=== PATIENT | male | born 1950 | race Caucasian/White ===

== ENCOUNTER 2016-09-24 15:04 | Emergency (ER) | payer OTHER ==
[~2016-09-24] VITALS: Ht 167.6 cm; Wt 92.5 kg
[~2016-09-24 15:04] MED LIST: ACETAMINOPHEN325 M1 PO; ALEVE220 M2 PO; ASA FREE ANALG1 EACH PO; ASCORBIC ACID500 M3 PO; ASPIR 8181 M1 PO; ASPIRIN81 M1 PO; ATIVAN0.5 MG PO; ATIVAN1 M1 PO; ATIVAN1 MG PO; Aspirin E.C. PO; BACTRIM,SEPT1 TABLET PO; BISACODYL SUPP10 MG PR; BUPROBAN150 MG PO; CALCIUM CITRAT1 EAC1 PO; CARISOPRODOL350 MG PO; CARVEDILOL6.25 MG PO; CELEBREX200 MG PO; CELECOXIB200 MG PO; CENTURY SENIOR1 EAC2 PO; CHANTIX1 MG PO; CLOPIDOGREL75 MG PO; COMBIVENT INH14.7 GM IH; COMBIVENT RESPIM4 GM IH; COMBIVENT200 INHALA IH; CRESTOR40 MG PO; CYMBALTA20 MG PO; CYMBALTA30 MG PO; CYMBALTA60 MG PO; DECADRON1 MG PO; DECADRON2 MG PO; DECADRON4 MG PO; DIAZEPAM5 MG PO; DILAUDID2 MG PO; DOCUSATE SODIU1 EACH PO; DURAGESIC25 MCG TD; ENDOCET 5-3251 EACH PO; FAMOTIDINE20 MG PO; FLEXERIL10 MG PO; FLOMAX0.4 MG PO; FOLIC ACID1 MG PO; HYDROCET 5-5001 EACH PO; LIPITOR40 MG PO; LIPITOR80 MG PO; LISINOPRIL10 MG PO; LISINOPRIL20 MG PO; LISINOPRIL5 MG PO; LORAZEPAM1 MG; LORAZEPAM1 MG PO; LOVAZA1 GM PO; MILK OF MAGNESI10 ML PO; MULTI DELYN PO; MULTI-VITAMIN1 EAC4 PO; MULTIVITAMIN1 EAC2 PO; MYSOLINE50 MG PO; NAPROSYN500 MG PO; NEXIUM40 MG PO; OXYCODONE-ACET1 EACH PO; OXYCODONE-APAP1 EACH PO; PERCOCET 5-3251 EACH PO; PERCOCET 5/31 TABLET PO; PLAVIX75 MG PO; PRIMIDONE50 MG PO; PRINIVIL20 MG PO; Percocet 5/325,Endoc PO; RANITIDINE HCL150 MG PO; ROXICET 5-3251 EACH PO; SOMA350 MG PO; SULFAMETHOXAZO1 EAC4 PO; TIZANIDINE HCL4 M1 PO; TRAMADOL HCL50 MG PO; ULTRAM50 MG PO; VALIUM5 MG PO; VENTOLIN HFA18 GM IH; VICODIN 5-5001 EACH PO; ZANAFLEX4 M1 PO; ZANTAC300 MG PO; ZESTRIL,PRINIVI10 MG PO; ZESTRIL30 MG PO; ZESTRIL40 MG PO; ZETIA10 MG; ZETIA10 MG PO; ZOFRAN ODT4 MG PO
[2016-09-24] MEDS ORDERED: OXYCODONE-APAP1 EAC6 PO (15:22)
[2016-09-24 18:44] LABS: RED CELL COUNT 40000 /MM^3 (0-1); WHITE CELL COUNT 17984 /MM^3 (0-200.0)
[2016-09-24 19:01] LABS: MONO RAW COUNT 26; MONONUCLEAR WBC'S 26 %; POLY RAW COUNT 74; POLYNUCLEAR WBC'S 74 % (0-25); SYNOVIAL FLUID EOSINOPHILS 0 % (0-25)
[2016-09-24] MEDS ORDERED: INDOCIN50 MG PO (20:29)
[2016-09-24 21:09] VITALS: BP 130/81
== END 2016-09-24 21:09 | disposition home or self-care (01) ==
LOC: EME → EDBD 15:04 → EME 21:09
PROVIDERS: Physician Assistant
PROC: 0S9C3ZZ Drainage of Right Knee Joint, Percutaneous Approach (ICD-10-PCS; principal; 2016-09-24)
DX: M17.9 Osteoarthritis of knee, unspecified (principal); Z86.73 Personal history of transient ischemic attack (TIA), and cerebral infarction without residual deficits; Z95.1 Presence of aortocoronary bypass graft; F17.200 Nicotine dependence, unspecified, uncomplicated
CPT/HCPCS: 73564; 84157; 87070; 87075; 87205; 89051; 89060; 99281; 99284; J2270; J3010

== ENCOUNTER 2017-03-30 08:51 | Emergency (ER) | payer OTHER ==
[~2017-03-30] VITALS: Ht 175.3 cm; Wt 90.4 kg
[~2017-03-30 08:51] MED LIST changes: +INDOCIN50 MG PO; +OXYCODONE-APAP1 EAC6 PO
[2017-03-30 09:24] LABS: HEMATOCRIT 39.8 % (38.0-50.0); MCHC 33.9 G/DL (30.0-36.0); MCV 85.4 FL (86-99); MEAN PLAT.VOLUME 9.3 uM^3 (9.0-12.4); PLATELET COUNT 233 K/uL (156-360); RBC DIS.WIDTH-CV 13.7 % (11.8-14.6); RBC DIS.WIDTH-SD 42.6 % (39-53); RED BLOOD COUNT 4.66 M/uL (4.00-5.50)
[2017-03-30 09:40] LABS: CHLORIDE 104 mEq/L (99-109); POTASSIUM 4.2 mEq/L (3.7-5.4); SODIUM 139 mEq/L (136-147)
[2017-03-30 09:42] LABS: GLUCOSE 106 mg/dL (70-99)
[2017-03-30 09:43] LABS: ANION GAP 11 MEQ/L (2-14)
[2017-03-30 09:44] LABS: TROP-I INTERPRETATION NEGATIVE; TROPONIN-I < 0.01 ng/mL (0.0-0.30)
[2017-03-30 09:46] LABS: GFR ESTIMATE (CALCULATED) > 59 mL/min/
[2017-03-30 09:47] LABS: UREA NITROGEN (BUN) 12 mg/dL (9-23)
[2017-03-30 10:44] LABS: ADD MIUA? NO; BILIRUBIN NEGATIVE; BLOOD NEGATIVE; COLOR YELLOW ((YELLOW)); GLUCOSE (STRIP) NEGATIVE; KETONES NEGATIVE; LEUKOCYTES NEGATIVE; NITRITE NEGATIVE; PROTEIN (STRIP) NEGATIVE; SPECIFIC GRAVITY 1.014 (1.000-1.030); UCUL ADDED? NO; UROBILINOGEN 0.2 MG/DL (0.2-1.0)
[2017-03-30] MEDS ORDERED: ANTIVERT25 MG PO (13:48)
[2017-03-30 14:05] VITALS: BP 117/81
== END 2017-03-30 14:06 | disposition home or self-care (01) ==
LOC: EME 08:51
PROVIDERS: Emergency Medicine
DX: R42 Dizziness and giddiness (principal); J44.9 Chronic obstructive pulmonary disease, unspecified; K21.9 Gastro-esophageal reflux disease without esophagitis; Z86.73 Personal history of transient ischemic attack (TIA), and cerebral infarction without residual deficits; F32.9 Major depressive disorder, single episode, unspecified; F41.9 Anxiety disorder, unspecified; Z95.1 Presence of aortocoronary bypass graft; Z98.1 Arthrodesis status; F17.200 Nicotine dependence, unspecified, uncomplicated
CPT/HCPCS: 70450; 71010; 80048; 81003; 84484; 85027; 93005; 99281; 99285

== ENCOUNTER 2017-04-19 12:49 | Emergency (ER) | payer OTHER ==
[~2017-04-19] VITALS: Ht 160 cm; Wt 85.1 kg
[~2017-04-19 12:49] MED LIST changes: +ANTIVERT25 MG PO
[2017-04-19] MEDS ORDERED: ATORVASTATIN CA40 MG PO (13:03)
[2017-04-19] MEDS ORDERED: LISINOPRIL5 MG PO (13:03)
[2017-04-19] MEDS ORDERED: MYSOLINE50 MG PO (13:04)
[2017-04-19] MEDS ORDERED: BUPROPION HCL150 M2 PO (13:04)
[2017-04-19] MEDS ORDERED: COMBIVENT RESPIM4 GM IH (13:05)
[2017-04-19 13:25] LABS: HEMATOCRIT 36.9 % (38.0-50.0); MCHC 33.9 G/DL (30.0-36.0); MCV 85.6 FL (86-99); MEAN PLAT.VOLUME 9.2 uM^3 (9.0-12.4); PLATELET COUNT 224 K/uL (156-360); RBC DIS.WIDTH-CV 13.7 % (11.8-14.6); RED BLOOD COUNT 4.31 M/uL (4.00-5.50); WHITE BLOOD COUNT 9.9 K/uL (4.1-10.2)
[2017-04-19 13:38] LABS: CHLORIDE 105 mEq/L (99-109); POTASSIUM 4.1 mEq/L (3.7-5.4); SODIUM 139 mEq/L (136-147)
[2017-04-19 13:40] LABS: GLUCOSE 87 mg/dL (70-99)
[2017-04-19 13:42] LABS: ANION GAP 11 MEQ/L (2-14); TOTAL BILIRUBIN 0.3 mg/dL (0.0-1.0)
[2017-04-19 13:44] LABS: ALKALINE PHOSPHATASE 88 IU/L (3-129); GFR ESTIMATE (CALCULATED) > 59 mL/min/
[2017-04-19 13:45] LABS: TROP-I INTERPRETATION NEGATIVE; TROPONIN-I < 0.01 ng/mL (0.0-0.30); UREA NITROGEN (BUN) 15 mg/dL (9-23)
[2017-04-19] MEDS ORDERED: GUAIFENESIN600 M1 PO (15:56)
[2017-04-19] MEDS ORDERED: TESSALON200 MG PO (15:56)
[2017-04-19] MEDS ORDERED: ROBITUSSIN NIG237 ML PO (15:56)
[2017-04-19] MEDS ORDERED: ALBUTEROL0.63 MG/3 IH (15:56)
[2017-04-19] MEDS ORDERED: PREDNISONE20 MG PO (15:59)
[2017-04-19 16:16] VITALS: BP 109/74
== END 2017-04-19 16:53 | disposition home or self-care (01) ==
LOC: EME 12:49
PROVIDERS: Nurse Practitioner Family
DX: J44.1 Chronic obstructive pulmonary disease with (acute) exacerbation (principal); F17.210 Nicotine dependence, cigarettes, uncomplicated; Z71.6 Tobacco abuse counseling; F32.9 Major depressive disorder, single episode, unspecified; F41.9 Anxiety disorder, unspecified; Z86.73 Personal history of transient ischemic attack (TIA), and cerebral infarction without residual deficits; Z95.1 Presence of aortocoronary bypass graft; Z79.82 Long term (current) use of aspirin; Z88.7 Allergy status to serum and vaccine
CPT/HCPCS: 71020; 80053; 84484; 85027; 93005; 94640; 99281; 99285; J7512

== ENCOUNTER 2017-08-26 19:25 | Inpatient (IN) | payer OTHER ==
[~2017-08-26] VITALS: Ht 167.6 cm; Wt 94.8 kg
[~2017-08-26 19:25] MED LIST changes: +ALBUTEROL0.63 MG/3 IH; +BUPROPION HCL150 M2 PO; +GUAIFENESIN600 M1 PO; +PREDNISONE20 MG PO; +ROBITUSSIN NIG237 ML PO; +TESSALON200 MG PO
[2017-08-26 19:50] LABS: BASOPHIL (%) 0.5 % (0-1); EOSINOPHIL (%) 3.5 % (0-5); EOSINOPHIL COUNT 0.3 K/uL (0-0.3); HEMATOCRIT 38.4 % (38.0-50.0); HEMOGLOBIN 13.2 G/DL (12.5-16.6); IMMATURE GRANULOCYTE (%) 0.4 % (0.0-0.7); LYMPHOCYTE (%) 19.8 % (15-42); LYMPHOCYTE COUNT 1.5 K/uL (1.0-2.8); MCH 28.8 PG (29.0-34.0); MCHC 34.4 G/DL (30.0-36.0); MCV 83.8 FL (86-99); MONOCYTE (%) 17.4 % (3-12); MONOCYTE COUNT 1.3 K/uL (0-0.8); NEUTROPHIL (%) 58.4 % (45-76); NEUTROPHIL COUNT 4.3 K/uL (1.8-6.4); PLATELET COUNT 234 K/uL (156-360); RBC DIS.WIDTH-CV 13.2 % (11.8-14.6); RBC DIS.WIDTH-SD 40.1 % (39-53); RED BLOOD COUNT 4.58 M/uL (4.00-5.50); WHITE BLOOD COUNT 7.4 K/uL (4.1-10.2)
[2017-08-26 20:01] LABS: CHLORIDE 108 mEq/L (99-109); POTASSIUM 3.8 mEq/L (3.7-5.4); SODIUM 135 mEq/L (136-147)
[2017-08-26 20:03] LABS: GLUCOSE 112 mg/dL (70-99)
[2017-08-26 20:05] LABS: TOTAL BILIRUBIN 0.5 mg/dL (0.0-1.0)
[2017-08-26 20:07] LABS: ALKALINE PHOSPHATASE 95 IU/L (3-129); GFR ESTIMATE (CALCULATED) > 59 mL/min/ (58.99-99999)
[2017-08-26 20:08] LABS: AST (GOT) 21 IU/L (2-34); UREA NITROGEN (BUN) 12 mg/dL (9-23)
[2017-08-26 20:10] LABS: ALT (GPT) 28 IU/L (3-49)
[2017-08-26 20:16] LABS: TROP-I INTERPRETATION NEGATIVE; TROPONIN-I 0.02 ng/mL (0.0-0.30)
[2017-08-26] MEDS ORDERED: ALBUTEROL0.63 MG/3 IH (21:53)
[2017-08-26] MEDS ORDERED: MYSOLINE50 MG PO (21:54)
[2017-08-26] MEDS ORDERED: TOPAMAX50 MG PO ×2 (21:56→21:57)
[2017-08-26] MEDS ORDERED: CHANTIX1 MG PO (21:57)
[2017-08-27] VITALS (7 sets, daily range): BP systolic 101–128; BP diastolic 58–79
[2017-08-27 00:03] LABS: APPEARANCE CLEAR ((CLEAR)); BILIRUBIN NEGATIVE; BLOOD SMALL; COLOR YELLOW ((YELLOW)); GLUCOSE (STRIP) NEGATIVE; KETONES NEGATIVE; LEUKOCYTES NEGATIVE; NITRITE NEGATIVE; PROTEIN (STRIP) NEGATIVE; SPECIFIC GRAVITY 1.006 (1.000-1.030); UROBILINOGEN 0.2 MG/DL (0.2-1.0)
[2017-08-27 00:06] LABS: BACTERIA RARE /HPF; EPITHELIAL CELLS RARE /HPF; MUCUS NONE SEEN /LPF; RED BLOOD CELLS 0-5 /HPF (0-5); UCUL ADDED? NO; WHITE BLOOD CELLS 0-5 /HPF (0-5)
[2017-08-27 06:35] LABS: BASOPHIL (%) 0.4 % (0-1); EOSINOPHIL (%) 0.2 % (0-5); HEMATOCRIT 37.1 % (38.0-50.0); HEMOGLOBIN 12.3 G/DL (12.5-16.6); IMMATURE GRANULOCYTE (%) 0.4 % (0.0-0.7); LYMPHOCYTE (%) 14.1 % (15-42); LYMPHOCYTE COUNT 0.7 K/uL (1.0-2.8); MCH 28.8 PG (29.0-34.0); MCHC 33.2 G/DL (30.0-36.0); MCV 86.9 FL (86-99); MONOCYTE (%) 5.7 % (3-12); MONOCYTE COUNT 0.3 K/uL (0-0.8); NEUTROPHIL (%) 79.2 % (45-76); NEUTROPHIL COUNT 4.1 K/uL (1.8-6.4); PLATELET COUNT 205 K/uL (156-360); RBC DIS.WIDTH-CV 13.6 % (11.8-14.6); RBC DIS.WIDTH-SD 43.4 % (39-53); RED BLOOD COUNT 4.27 M/uL (4.00-5.50); WHITE BLOOD COUNT 5.1 K/uL (4.1-10.2)
[2017-08-27 07:06] LABS: CHLORIDE 106 MEQ/L (99-109); CREATININE 1.1 MG/DL (0.6-1.3); GFR ESTIMATE (CALCULATED) > 59 mL/min/ (58.99-99999); GLUCOSE 133 mg/dL (70-99); POTASSIUM 4.5 MEQ/L (3.7-5.4); SODIUM 140 MEQ/L (136-147); UREA NITROGEN (BUN) 13 mg/dL (9-23)
[2017-08-28] VITALS (7 sets, daily range): BP systolic 114–137; BP diastolic 59–85
[2017-08-28 06:48] LABS: BASOPHIL (%) 0.5 % (0-1); EOSINOPHIL (%) 4.9 % (0-5); EOSINOPHIL COUNT 0.3 K/uL (0-0.3); HEMATOCRIT 35.9 % (38.0-50.0); HEMOGLOBIN 11.9 G/DL (12.5-16.6); IMMATURE GRANULOCYTE (%) 0.2 % (0.0-0.7); LYMPHOCYTE (%) 29.9 % (15-42); LYMPHOCYTE COUNT 1.8 K/uL (1.0-2.8); MCH 28.7 PG (29.0-34.0); MCHC 33.1 G/DL (30.0-36.0); MCV 86.5 FL (86-99); MONOCYTE (%) 12.7 % (3-12); MONOCYTE COUNT 0.8 K/uL (0-0.8); NEUTROPHIL (%) 51.8 % (45-76); NEUTROPHIL COUNT 3.1 K/uL (1.8-6.4); PLATELET COUNT 195 K/uL (156-360); RBC DIS.WIDTH-CV 13.6 % (11.8-14.6); RBC DIS.WIDTH-SD 43.4 % (39-53); RED BLOOD COUNT 4.15 M/uL (4.00-5.50); WHITE BLOOD COUNT 5.9 K/uL (4.1-10.2)
[2017-08-28 07:19] LABS: CHLORIDE 110 MEQ/L (99-109); GFR ESTIMATE (CALCULATED) > 59 mL/min/ (58.99-99999); POTASSIUM 4.5 MEQ/L (3.7-5.4); SODIUM 145 MEQ/L (136-147); UREA NITROGEN (BUN) 15 mg/dL (9-23)
[2017-08-28 07:21] LABS: GLUCOSE 96 mg/dL (70-99)
[2017-08-28 15:23] LABS: C DIFF TOXIN NEGATIVE (NEGATIVE)
[2017-08-29 03:43] VITALS: BP 116/68
[2017-08-29 06:26] LABS: BASOPHIL (%) 0.7 % (0-1); EOSINOPHIL (%) 12.2 % (0-5); EOSINOPHIL COUNT 0.7 K/uL (0-0.3); HEMATOCRIT 34.1 % (38.0-50.0); HEMOGLOBIN 11.2 G/DL (12.5-16.6); IMMATURE GRANULOCYTE (%) 0.2 % (0.0-0.7); LYMPHOCYTE (%) 33.8 % (15-42); LYMPHOCYTE COUNT 1.8 K/uL (1.0-2.8); MCH 28.4 PG (29.0-34.0); MCHC 32.8 G/DL (30.0-36.0); MCV 86.3 FL (86-99); MONOCYTE (%) 8.1 % (3-12); MONOCYTE COUNT 0.4 K/uL (0-0.8); NEUTROPHIL COUNT 2.4 K/uL (1.8-6.4); PLATELET COUNT 199 K/uL (156-360); RBC DIS.WIDTH-CV 13.4 % (11.8-14.6); RBC DIS.WIDTH-SD 42.1 % (39-53); RED BLOOD COUNT 3.95 M/uL (4.00-5.50); WHITE BLOOD COUNT 5.4 K/uL (4.1-10.2)
[2017-08-29 06:53] LABS: CHLORIDE 109 MEQ/L (99-109); GFR ESTIMATE (CALCULATED) > 59 mL/min/ (58.99-99999); GLUCOSE 93 mg/dL (70-99); MAGNESIUM 2.2 mg/dl (1.3-2.7); POTASSIUM 4.2 MEQ/L (3.7-5.4); SODIUM 145 MEQ/L (136-147); UREA NITROGEN (BUN) 13 mg/dL (9-23)
[2017-08-29 07:10] VITALS: BP 112/62
[2017-08-29 11:11] VITALS: BP 121/64
[2017-08-29] MEDS ORDERED: AUGMENTIN875 MG PO (11:46)
[2017-08-29] MEDS ORDERED: AZITHROMYCIN500 M1 PO (11:46)
[2017-08-29] MEDS ORDERED: TAMIFLU75 MG PO (11:46)
[2017-08-29] MEDS ORDERED: FLORASTOR250 MG PO (11:46)
[2017-08-29] MEDS ORDERED: CEFDINIR300 MG PO (12:04)
== END 2017-08-29 13:21 | disposition home or self-care (01) | DRG 871 ==
LOC: EME 19:25 → EDOF 22:38 → 5SOUTH 22:38 → ENRESERV 22:41 → 5SOUTH 08-27 00:34 → ENPENDDIS 08-29 12:14 → 5SOUTH 08-29 13:21
PROVIDERS: Emergency Medicine; Physician Assistant; Physician Assistant Medical; Student in an Organized Health Care Education/Training Program
DX: A41.9 Sepsis, unspecified organism (principal); J10.00 Influenza due to other identified influenza virus with unspecified type of pneumonia; J18.9 Pneumonia, unspecified organism; J44.0 Chronic obstructive pulmonary disease with (acute) lower respiratory infection; J44.1 Chronic obstructive pulmonary disease with (acute) exacerbation; E87.1 Hypo-osmolality and hyponatremia; I95.9 Hypotension, unspecified; J10.2 Influenza due to other identified influenza virus with gastrointestinal manifestations; J10.1 Influenza due to other identified influenza virus with other respiratory manifestations; J98.11 Atelectasis; I25.10 Atherosclerotic heart disease of native coronary artery without angina pectoris; G25.0 Essential tremor; F33.40 Major depressive disorder, recurrent, in remission, unspecified; I10 Essential (primary) hypertension; E78.5 Hyperlipidemia, unspecified; Z66 Do not resuscitate; K21.9 Gastro-esophageal reflux disease without esophagitis; K57.90 Diverticulosis of intestine, part unspecified, without perforation or abscess without bleeding; K80.20 Calculus of gallbladder without cholecystitis without obstruction; F41.9 Anxiety disorder, unspecified; M48.061 Spinal stenosis, lumbar region without neurogenic claudication; G89.29 Other chronic pain; M19.90 Unspecified osteoarthritis, unspecified site; N40.0 Benign prostatic hyperplasia without lower urinary tract symptoms; G43.909 Migraine, unspecified, not intractable, without status migrainosus; Z86.73 Personal history of transient ischemic attack (TIA), and cerebral infarction without residual deficits; Z95.1 Presence of aortocoronary bypass graft; Z98.1 Arthrodesis status; Z79.82 Long term (current) use of aspirin
CPT/HCPCS: 71046; 80048; 80053; 81003; 83605; 83735; 84484; 85025; 87040; 87493; 87502; 93005; 94640; 94640 76; 97110 GP; 97140 GP; 99202; 99281; 99285; J0295; J0456; J0696; J1650; J1885; J2930; J7030; J7050; J7120

== ENCOUNTER 2017-11-10 18:33 | Observation (INO) | payer OTHER ==
[~2017-11-10] VITALS: Ht 167.6 cm; Wt 98.0 kg
[~2017-11-10 18:33] MED LIST changes: +AUGMENTIN875 MG PO; +AZITHROMYCIN500 M1 PO; +CEFDINIR300 MG PO; +FLORASTOR250 MG PO; +TAMIFLU75 MG PO; +TOPAMAX100 MG PO; +TOPAMAX50 MG PO
[2017-11-10 19:11] LABS: HEMATOCRIT 37.4 % (38.0-50.0); HEMOGLOBIN 13.2 G/DL (12.5-16.6); MCH 29.8 PG (29.0-34.0); MCHC 35.3 G/DL (30.0-36.0); MCV 84.4 FL (86-99); PLATELET COUNT 237 K/uL (156-360); RBC DIS.WIDTH-CV 14.4 % (11.8-14.6); RBC DIS.WIDTH-SD 43.9 % (39-53); RED BLOOD COUNT 4.43 M/uL (4.00-5.50); WHITE BLOOD COUNT 12.3 K/uL (4.1-10.2)
[2017-11-10 19:21] LABS: CHLORIDE 107 mEq/L (99-109); POTASSIUM 3.9 mEq/L (3.7-5.4); SODIUM 141 mEq/L (136-147)
[2017-11-10 19:23] LABS: GLUCOSE 123 mg/dL (70-99)
[2017-11-10 19:27] LABS: CREATININE 1.1 mg/dL (0.6-1.3); GFR ESTIMATE (CALCULATED) > 59 mL/min/ (58.99-99999); UREA NITROGEN (BUN) 15 mg/dL (9-23)
[2017-11-10 19:34] LABS: TROP-I INTERPRETATION NEGATIVE; TROPONIN-I < 0.01 ng/mL (0.0-0.30)
[2017-11-10] MEDS ORDERED: ATARAX10 MG PO (21:37)
[2017-11-10 22:33] VITALS: BP 127/67
[2017-11-11 03:55] VITALS: BP 109/55
[2017-11-11 05:17] LABS: HEMATOCRIT 36.2 % (38.0-50.0); HEMOGLOBIN 12.1 G/DL (12.5-16.6); MCH 28.4 PG (29.0-34.0); MCHC 33.4 G/DL (30.0-36.0); PLATELET COUNT 249 K/uL (156-360); RBC DIS.WIDTH-CV 14.6 % (11.8-14.6); RBC DIS.WIDTH-SD 44.6 % (39-53); RED BLOOD COUNT 4.26 M/uL (4.00-5.50); WHITE BLOOD COUNT 8.5 K/uL (4.1-10.2)
[2017-11-11 05:50] LABS: CHLORIDE 106 MEQ/L (99-109); CREATININE 1.2 MG/DL (0.6-1.3); GFR ESTIMATE (CALCULATED) > 59 mL/min/ (58.99-99999); POTASSIUM 4.1 MEQ/L (3.7-5.4); SODIUM 140 MEQ/L (136-147); UREA NITROGEN (BUN) 22 mg/dL (9-23)
[2017-11-11 06:16] LABS: GLUCOSE 199 mg/dL (70-99)
[2017-11-11 07:14] VITALS: BP 126/61
[2017-11-11] MEDS ORDERED: PREDNISONE10 MG PO (13:38)
[2017-11-11] MEDS ORDERED: ZITHROMAX250 MG PO (13:41)
== END 2017-11-11 16:38 | disposition home or self-care (01) ==
LOC: EME 18:33 → EDOF 21:15 → ENRESERV 21:19 → 4SOUTH 22:26
PROVIDERS: Nurse Practitioner Adult Health
DX: J44.1 Chronic obstructive pulmonary disease with (acute) exacerbation (principal); D72.829 Elevated white blood cell count, unspecified; Z87.01 Personal history of pneumonia (recurrent); I25.10 Atherosclerotic heart disease of native coronary artery without angina pectoris; I10 Essential (primary) hypertension; E78.5 Hyperlipidemia, unspecified; Z87.891 Personal history of nicotine dependence; Z86.73 Personal history of transient ischemic attack (TIA), and cerebral infarction without residual deficits; G25.0 Essential tremor; K57.90 Diverticulosis of intestine, part unspecified, without perforation or abscess without bleeding; K21.9 Gastro-esophageal reflux disease without esophagitis; F41.9 Anxiety disorder, unspecified; F32.9 Major depressive disorder, single episode, unspecified; G89.29 Other chronic pain; M51.27 Other intervertebral disc displacement, lumbosacral region; M48.061 Spinal stenosis, lumbar region without neurogenic claudication; M19.90 Unspecified osteoarthritis, unspecified site; J32.9 Chronic sinusitis, unspecified; N40.0 Benign prostatic hyperplasia without lower urinary tract symptoms; Z90.49 Acquired absence of other specified parts of digestive tract; Z95.1 Presence of aortocoronary bypass graft; Z95.5 Presence of coronary angioplasty implant and graft; Z98.1 Arthrodesis status; Z88.7 Allergy status to serum and vaccine
CPT/HCPCS: 71250; 71275; 80048; 84484; 85027; 93005; 94640; 94640 76; 99281; 99285; G0378; J1650; J2930

== ENCOUNTER 2017-12-09 10:00 | Emergency (ER) | payer OTHER ==
[~2017-12-09] VITALS: Ht 167.6 cm; Wt 98.0 kg
[~2017-12-09 10:00] MED LIST changes: +ATARAX10 MG PO; +PREDNISONE10 MG PO; +ZITHROMAX250 MG PO
[2017-12-09 11:43] LABS: HEMATOCRIT 38.3 % (38.0-50.0); MCH 29.5 PG (29.0-34.0); MCHC 33.9 G/DL (30.0-36.0); PLATELET COUNT 248 K/uL (156-360); RBC DIS.WIDTH-CV 14.2 % (11.8-14.6); RBC DIS.WIDTH-SD 45.3 % (39-53)
[2017-12-09 11:55] LABS: CHLORIDE 107 mEq/L (99-109); POTASSIUM 4.4 mEq/L (3.7-5.4); SODIUM 141 mEq/L (136-147)
[2017-12-09 11:56] LABS: GLUCOSE 93 mg/dL (70-99)
[2017-12-09 12:00] LABS: GFR ESTIMATE (CALCULATED) > 59 mL/min/ (58.99-99999)
[2017-12-09 12:01] LABS: UREA NITROGEN (BUN) 18 mg/dL (9-23)
[2017-12-09] MEDS ORDERED: AMBIEN5 MG PO (14:06)
[2017-12-09 14:29] VITALS: BP 105/57
[2017-12-09 14:47] LABS: THYROTROPIN (TSH) 1.3 MIU/L (0.4-5.5)
== END 2017-12-09 14:30 | disposition home or self-care (01) ==
LOC: EME 10:00
PROVIDERS: Physician Assistant
DX: G47.00 Insomnia, unspecified (principal); K21.9 Gastro-esophageal reflux disease without esophagitis; E11.9 Type 2 diabetes mellitus without complications; F41.9 Anxiety disorder, unspecified; Z87.891 Personal history of nicotine dependence; Z95.1 Presence of aortocoronary bypass graft; Z98.1 Arthrodesis status; Z88.7 Allergy status to serum and vaccine
CPT/HCPCS: 71046; 80048; 81003; 84443; 85027; 93005; 99281; 99283